=== PATIENT | male | born 1945 | race African-American/Black ===

== ENCOUNTER 2018-05-19 09:49 | Inpatient (IN) | payer MEDICARE, MEDICAID ==
[~2018-05-19] VITALS: Ht 182.9 cm; Wt 79.8 kg
[2018-05-19] MEDS ORDERED: SODIUM CHLORIDE 0.9% 1000ML BAG (SEPSIS BOLUS) IV ONE (10:15)
[2018-05-19 10:45] LABS: HEMATOCRIT. 50.4 % (42.0-52.0); HEMOGLOBIN. 16.9 g/dL (14.0-18.0); MEAN CORPUSCULAR HEMOGLOBIN 35.4 pg (28.0-32.0); MEAN CORPUSCULAR VOLUME 105.6 fL (80.0-94.0); PLATELET 77 x1000/uL (130-400); RED BLOOD CELL COUNT 4.77 mill/uL (4.7-6.1); RED CELL DISTRIBUTION WIDTH 16.7 % (11.6-14.6)
[2018-05-19 10:50] LABS: INR 1.6; PROTHROMBIN TIME 15.8 sec (9.1-11.1)
[2018-05-19 10:51] LABS: CHLORIDE 95 mEq/L (98-107)
[2018-05-19] MEDS ORDERED: VANCOMYCIN 1 G PREMIX 200 ML IV STA (11:16)
[2018-05-19] MEDS ORDERED: CEFEPIME 1,000 MG in DEXTROSE 5% WATER 50 ML IV STA (11:16)
[2018-05-19 11:29] LABS: PLATELET ESTIMATE DECREASED
[2018-05-19] MEDS: METOPROLOL TARTRATE 5MG/5ML VIAL IV SCH ×2 (11:33→14:43)
[2018-05-19] MEDS ORDERED: ASPIRIN 81MG TABLET PO ONE (11:45)
[2018-05-19 12:22] LABS: CREATINE KINASE 2353 IU/L (39-308)
[2018-05-19] MEDS ORDERED: PIPERACILLIN/TAZ 3.375G PREMIX 50 ML IV SCH (12:30)
[2018-05-19] MEDS: DEXT 5%/0.9% NACL 1,000 ML IV SCH (12:30)
[2018-05-19 14:19] LABS: BG BASE EXCESS -11.4 mmol/L (-2.0-2.0); BG CARBOXYHEMOGLOBIN 2.2 % (0.5-1.5); BG HCO3 ACT 12.1 mmol/L (22.0-26.0); BG METHEMOGLOBIN 0.2 % (0.0-1.5); BG OXYHEMOGLOBIN 96.6 % (94.0-97.0); BG PCO2 23.1 mmHg (35.0-45.0); BG PH 7.336 (7.350-7.450); BG PO2 149.7 mmHg (75.0-100.0); BG SAMPLE SITE LEFT RADIAL; BG TOTAL HEMOGLOBIN 16.2 g/dL (12.0-18.0); BG VENT MODE NASAL CANNULA
[2018-05-19 14:53] LABS: CLARITY URINE CLEAR (CLEAR); COLOR URINE YELLOW (YELLOW); KETONES URINE NEGATIVE (NEGATIVE); LEUKOCYTE ESTERASE URINE 2+ (NEGATIVE); NITRITE URINE NEGATIVE (NEGATIVE); OCCULT BLOOD URINE 2+ (NEGATIVE); PROTEIN URINE 1+ (NEGATIVE); SPECIFIC GRAVITY URINE 1.015 (1.005-1.030)
[2018-05-19 15:20] LABS: *AMPHETAMINES SCREEN URINE NEGATIVE (NEGATIVE); *BARBITURATES SCREEN URINE NEGATIVE (NEGATIVE); *BENZODIAZEPINES SCREEN URINE NEGATIVE (NEGATIVE); *COCAINE SCREEN URINE NEGATIVE (NEGATIVE); CANNABINOID URINE SCREEN NEGATIVE (NEGATIVE); METHADONE URINE SCREEN NEGATIVE (NEGATIVE); OPIATES URINE SCREEN NEGATIVE (NEGATIVE); PHENCYCLIDINE URINE SCREEN NEGATIVE (NEGATIVE)
[2018-05-19] MEDS ORDERED: LIDOCAINE HCL 1% 20ML VIAL (Pyxis) INJ INFIL ONE (15:30)
[2018-05-19] MEDS ORDERED: ONDANSETRON HCL 4MG/2ML INJ IV ONE (16:30)
[2018-05-19] MEDS ORDERED: MORPHINE SULFATE 4 MG/ML CPJ (NOT FOR IM USE) IV ONE (16:30)
[2018-05-19] MEDS ORDERED: VERAPAMIL HCL 2.5 MG/1 ML 2ML VIAL IV NR (19:09)
[2018-05-19] MEDS ORDERED: IPRATROPIUM/ALBUTEROL 0.5-3(2.5)MG/3ML NEB HHN PRN (19:10)
[2018-05-19] MEDS: DILTIAZEM HCL 30MG TABLET PO SCH (19:54)
[2018-05-19 20:00] VITALS: BP 108/95
[2018-05-19 21:00] VITALS: BP 108/95
[2018-05-19] MEDS ORDERED: LEVOFLOXACIN 250MG PREMIX 50 ML IV SCH (21:00)
[2018-05-19] MEDS: AMIODARONE HCL 200 MG TABLET PO SCH (21:23)
[2018-05-19 22:00] VITALS: BP 87/61
[2018-05-19] MEDS ORDERED: VANCOMYCIN 500 MG PREMIX 100 ML IV SCH (22:00)
[2018-05-20] VITALS (12 sets, daily range): BP systolic 86–118; BP diastolic 55–76
[2018-05-20] MEDS: DEXT 5%/0.9% NACL 1,000 ML IV SCH ×2 (01:50→18:16)
[2018-05-20] MEDS: DILTIAZEM HCL 30MG TABLET PO SCH ×4 (02:00→17:17)
[2018-05-20] MEDS ORDERED: VERAPAMIL HCL 2.5 MG/1 ML 2ML VIAL IV SCH (06:30)
[2018-05-20] MEDS: IPRATROPIUM BROMIDE (0.02%) 0.5MG/2.5ML NEB HHN SCH ×3 (07:25→20:47)
[2018-05-20] MEDS ORDERED: AMIODARONE HCL 200 MG TABLET PO SCH (08:00)
[2018-05-20] MEDS: AMIODARONE HCL 200 MG TABLET PO SCH (08:56)
[2018-05-20 21:18] LABS: CHLORIDE 103 mEq/L (98-107)
[2018-05-20 21:27] LABS: T4 FREE 1.02 ng/dL (0.76-1.46)
[2018-05-20 21:40] LABS: CREATINE KINASE 2402 IU/L (39-308)
[2018-05-20] MEDS ORDERED: CALCIUM CHLORIDE 1GM/10ML SYR IV NR (22:00)
[2018-05-20] MEDS ORDERED: SODIUM POLYSTYRENE SULFONATE 15 G/60 ML BOT PO NR ×2 (22:00→23:00)
[2018-05-20] MEDS ORDERED: SODIUM BICARBONATE 8.4% 1 MEQ/ML 50ML SYR IV NR (22:00)
[2018-05-20 22:13] LABS: PHOSPHORUS 2.8 mg/dL (2.5-4.9)
[2018-05-20] MEDS: DEXTROSE 50% WATER 50ML SYRINGE IV PRN (22:20)
[2018-05-20 22:24] LABS: BG CARBOXYHEMOGLOBIN 1.4 % (0.5-1.5); BG DEOXYHEMOGLOBIN 2.6 % (0.0-5.0); BG FRACTION INSPIRED OXYGEN 28; BG HCO3 ACT 11.1 mmol/L (22.0-26.0); BG METHEMOGLOBIN 0.3 % (0.0-1.5); BG OXYGEN SATURATION 97.4 % (92.0-98.5); BG OXYHEMOGLOBIN 95.7 % (94.0-97.0); BG PCO2 22.9 mmHg (35.0-45.0); BG PH 7.304 (7.350-7.450); BG PO2 101.5 mmHg (75.0-100.0); BG SAMPLE SITE RIGHT RADIAL; BG TOTAL HEMOGLOBIN 15.5 g/dL (12.0-18.0); BG VENT MODE NASAL CANNULA
[2018-05-20] MEDS: SODIUM BICARBONATE 150 MEQ in DEXT 5%/0.9% NACL 1,000 ML IV SCH (23:23)
[2018-05-20] MEDS ORDERED: LEVOFLOXACIN 250MG PREMIX 50 ML IV SCH (23:30)
[2018-05-21] VITALS (15 sets, daily range): BP systolic 97–127; BP diastolic 61–78
[2018-05-21] MEDS: DILTIAZEM HCL 30MG TABLET PO SCH ×4 (00:12→15:16)
[2018-05-21] MEDS: IPRATROPIUM BROMIDE (0.02%) 0.5MG/2.5ML NEB HHN SCH ×4 (01:53→20:54)
[2018-05-21 02:36] LABS: HEMATOCRIT. 48.7 % (42.0-52.0); MEAN CORPUSCULAR HEMOGLOBIN 35.5 pg (28.0-32.0); MEAN CORPUSCULAR VOLUME 108.1 fL (80.0-94.0); MEAN PLATELET VOLUME 9.5 fl (7.4-10.4); RED BLOOD CELL COUNT 4.51 mill/uL (4.7-6.1); RED CELL DISTRIBUTION WIDTH 17.7 % (11.6-14.6)
[2018-05-21 03:11] LABS: PLATELET 39 x1000/uL (130-400)
[2018-05-21 03:32] LABS: NUCLEATED RED BLOOD CELLS 6 /100 WBC; PLATELET ESTIMATE DECREAS
[2018-05-21] MEDS ORDERED: CALCIUM CHLORIDE 1GM/10ML SYR IV SCH (04:00)
[2018-05-21] MEDS: CALCIUM CHLORIDE 1000 MG in DEXTROSE 5% WATER 100 ML IV SCH (04:47)
[2018-05-21] MEDS: SODIUM POLYSTYRENE SULFONATE 15 G/60 ML BOT PO SCH ×3 (04:48→13:00)
[2018-05-21] MEDS: VERAPAMIL HCL 2.5 MG/1 ML 2ML VIAL IV PRN ×2 (05:53→17:50)
[2018-05-21] MEDS: BLOOD SUGAR DIAGNOSTIC STRIP TEST SCH ×4 (06:00→18:50)
[2018-05-21 06:29] LABS: HEMATOCRIT. 47.3 % (42.0-52.0); HEMOGLOBIN. 15.3 g/dL (14.0-18.0); INR 2.6; MEAN CORPUSCULAR HEMOGLOBIN 35.6 pg (28.0-32.0); PARTIAL THROMBOPLASTIN TIME 39.5 sec (23.4-31.0); PROTHROMBIN TIME 25.6 sec (9.1-11.1); RED CELL DISTRIBUTION WIDTH 18.1 % (11.6-14.6)
[2018-05-21 06:52] LABS: MEAN PLATELET VOLUME 9.6 fl (7.4-10.4); PLATELET 41 x1000/uL (130-400)
[2018-05-21] MEDS: DEXTROSE 50% WATER 50ML SYRINGE IV PRN (07:17)
[2018-05-21] MEDS ORDERED: LIDOCAINE HCL 1% 20ML VIAL (Pyxis) INJ ONE (08:00)
[2018-05-21 09:38] LABS: HEMATOCRIT 42.3 % (42.0-52.0); HEMOGLOBIN 14.2 g/dL (14.0-18.0); MEAN CORPUSCULAR HEMOGLOBIN 35.4 pg (28.0-32.0); MEAN CORPUSCULAR VOLUME 105.6 fL (80.0-94.0); RED BLOOD CELL COUNT 4.01 mill/uL (4.7-6.1); RED CELL DISTRIBUTION WIDTH 16.8 % (11.6-14.6)
[2018-05-21 09:41] LABS: CHLORIDE 106 mEq/L (98-107)
[2018-05-21 09:59] LABS: PLATELET 49 x1000/uL (130-400)
[2018-05-21] MEDS ORDERED: SODIUM BICARBONATE 150 MEQ in DEXT 5%/0.45% NACL 1000ML 1,000 ML IV SCH (10:00)
[2018-05-21 10:21] LABS: PHOSPHORUS 8.6 mg/dL (2.5-4.9)
[2018-05-21 11:49] LABS: CREATINE KINASE 5010 IU/L (39-308)
[2018-05-21 12:17] LABS: CORTISOL 21.3 ucg/dL
[2018-05-21] MEDS: SODIUM BICARBONATE 150 MEQ in DEXT 5%/0.9% NACL 1,000 ML IV SCH (12:19)
[2018-05-21 12:28] LABS: HEPATITIS B SURFACE ANTIGEN NEGATIVE
[2018-05-21 12:29] LABS: NUCLEATED RED BLOOD CELLS 5 /100 WBC; PLATELET ESTIMATE NORMAL
[2018-05-21 12:58] LABS: HEPATITIS A AB IGM NEGATIVE (NEGATIVE)
[2018-05-21] MEDS ORDERED: VANCOMYCIN 1250MG in DEXTROSE 5% WATER 250ML IV SCH (16:00)
[2018-05-21] MEDS ORDERED: LEVOFLOXACIN 250MG PREMIX 50 ML IV SCH (21:00)
[2018-05-22] VITALS (15 sets, daily range): BP systolic 97–139; BP diastolic 63–88
[2018-05-22] MEDS: DILTIAZEM HCL 30MG TABLET PO SCH ×3 (00:16→12:34)
[2018-05-22] MEDS: SODIUM BICARBONATE 150 MEQ in DEXT 5%/0.9% NACL 1,000 ML IV SCH (00:17)
[2018-05-22] MEDS: BLOOD SUGAR DIAGNOSTIC STRIP TEST SCH ×4 (00:17→17:40)
[2018-05-22] MEDS: CALCIUM CHLORIDE 1000 MG in DEXTROSE 5% WATER 100 ML IV SCH (00:20)
[2018-05-22] MEDS: DEXTROSE 50% WATER 50ML SYRINGE IV PRN (00:30)
[2018-05-22] MEDS: IPRATROPIUM BROMIDE (0.02%) 0.5MG/2.5ML NEB HHN SCH ×4 (00:52→20:25)
[2018-05-22 09:24] LABS: HEMATOCRIT. 43.4 % (42.0-52.0); HEMOGLOBIN. 14.5 g/dL (14.0-18.0); MEAN CORPUSCULAR HEMOGLOBIN 34.8 pg (28.0-32.0); MEAN CORPUSCULAR VOLUME 104.2 fL (80.0-94.0); MEAN PLATELET VOLUME 9.7 fl (7.4-10.4); RED BLOOD CELL COUNT 4.17 mill/uL (4.7-6.1); RED CELL DISTRIBUTION WIDTH 17.1 % (11.6-14.6)
[2018-05-22 09:27] LABS: CHLORIDE 104 mEq/L (98-107)
[2018-05-22 09:30] LABS: PLATELET 37 x1000/uL (130-400)
[2018-05-22 09:33] LABS: PHOSPHORUS 6.3 mg/dL (2.5-4.9)
[2018-05-22] MEDS ORDERED: SODIUM BICARBONATE 150 MEQ in DEXT 5%/0.45% NACL 1000ML 1,000 ML IV SCH (10:00)
[2018-05-22 10:23] LABS: PLATELET ESTIMATE MARKEDLY DECREASED
[2018-05-22 10:24] LABS: CREATINE KINASE 7699 IU/L (39-308)
[2018-05-22] MEDS: VERAPAMIL HCL 2.5 MG/1 ML 2ML VIAL IV PRN ×2 (11:03→17:52)
[2018-05-22] MEDS ORDERED: CEFEPIME 2,000 MG in DEXT 5% WATER 100 ML IV SCH (11:45)
[2018-05-22] MEDS ORDERED: CEFEPIME 1,000 MG in DEXTROSE 5% WATER 50 ML IV SCH ×2 (12:15→13:00)
[2018-05-22] MEDS ORDERED: LIDOCAINE HCL/EPINEPHRINE 1%-EPI 1:100,000 30 ML VIAL INFIL ONE (12:15)
[2018-05-22] MEDS ORDERED: VANCOMYCIN 1 G PREMIX 200 ML IV SCH (13:00)
[2018-05-22] MEDS ORDERED: CEFEPIME 1GM PREMIX 50 ML IV SCH (13:00)
[2018-05-22] MEDS ORDERED: LIDOCAINE HCL/EPINEPHRINE 1%-EPI 1:100,000 20 ML VIAL IJ ONE (13:00)
[2018-05-22] MEDS: LACTULOSE 20G/30ML UDC PO SCH ×2 (14:29→17:41)
[2018-05-22] MEDS: HYDROCODONE/ACETAMINOPHEN 5/325MG TABLET PO PRN (18:42)
[2018-05-22] MEDS: DILTIAZEM HCL 60MG TABLET PO SCH (22:06)
[2018-05-23] VITALS (12 sets, daily range): BP systolic 99–120; BP diastolic 37–75
[2018-05-23] MEDS: IPRATROPIUM BROMIDE (0.02%) 0.5MG/2.5ML NEB HHN SCH ×4 (00:36→20:35)
[2018-05-23] MEDS: DILTIAZEM HCL 60MG TABLET PO SCH (06:21)
[2018-05-23] MEDS: BLOOD SUGAR DIAGNOSTIC STRIP TEST SCH ×5 (06:23→23:11)
[2018-05-23 08:07] LABS: HEMATOCRIT. 43.8 % (42.0-52.0); HEMOGLOBIN. 14.4 g/dL (14.0-18.0); MEAN CORPUSCULAR HEMOGLOBIN 34.5 pg (28.0-32.0); MEAN CORPUSCULAR VOLUME 105.4 fL (80.0-94.0); MEAN PLATELET VOLUME 8.9 fl (7.4-10.4); PLATELET 60 x1000/uL (130-400); RED BLOOD CELL COUNT 4.16 mill/uL (4.7-6.1); RED CELL DISTRIBUTION WIDTH 17.6 % (11.6-14.6)
[2018-05-23] MEDS: LACTULOSE 20G/30ML UDC PO SCH ×4 (08:36→22:31)
[2018-05-23 10:10] LABS: PLATELET ESTIMATE DECREASED
[2018-05-23] MEDS ORDERED: VERAPAMIL HCL 2.5 MG/1 ML 2ML VIAL IV PRN (11:45)
[2018-05-23] MEDS: DILTIAZEM HCL 90MG TABLET PO SCH ×3 (12:10→23:13)
[2018-05-23 13:06] LABS: HIV SCREEN 4G Non Reactive (Non Reactive)
[2018-05-23] MEDS: CEFEPIME 500 MG in DEXTROSE 5% WATER 50 ML IV SCH (16:35)
[2018-05-23] MEDS: RIFAXIMIN 550 MG TABLET PO SCH (20:31)
[2018-05-24] VITALS (12 sets, daily range): BP systolic 91–134; BP diastolic 51–70
[2018-05-24] MEDS: IPRATROPIUM BROMIDE (0.02%) 0.5MG/2.5ML NEB HHN SCH ×4 (01:18→20:37)
[2018-05-24] MEDS: ONDANSETRON HCL 4MG/2ML INJ IV PRN ×2 (02:13→12:04)
[2018-05-24] MEDS: BLOOD SUGAR DIAGNOSTIC STRIP TEST SCH ×4 (05:45→23:46)
[2018-05-24] MEDS: DILTIAZEM HCL 90MG TABLET PO SCH ×5 (05:49→23:50)
[2018-05-24] MEDS ORDERED: VANCOMYCIN 1 G PREMIX 200 ML IV NR (06:00)
[2018-05-24 06:48] LABS: CHLORIDE 101 mEq/L (98-107)
[2018-05-24 06:49] LABS: HEMATOCRIT. 45.4 % (42.0-52.0); INR 1.6; MEAN CORPUSCULAR VOLUME 105.6 fL (80.0-94.0); MEAN PLATELET VOLUME 9.6 fl (7.4-10.4); PROTHROMBIN TIME 16.1 sec (9.1-11.1); RED CELL DISTRIBUTION WIDTH 17.6 % (11.6-14.6)
[2018-05-24 06:55] LABS: PHOSPHORUS 6.3 mg/dL (2.5-4.9)
[2018-05-24 07:11] LABS: CREATINE KINASE 3849 IU/L (39-308)
[2018-05-24 08:07] LABS: BG BASE EXCESS 0.8 mmol/L (-2.0-2.0); BG CARBOXYHEMOGLOBIN 1.7 % (0.5-1.5); BG DEOXYHEMOGLOBIN 5.7 % (0.0-5.0); BG FRACTION INSPIRED OXYGEN 36; BG HCO3 ACT 24.5 mmol/L (22.0-26.0); BG METHEMOGLOBIN 0.4 % (0.0-1.5); BG OXYGEN SATURATION 94.2 % (92.0-98.5); BG OXYHEMOGLOBIN 92.2 % (94.0-97.0); BG PCO2 36.5 mmHg (35.0-45.0); BG PH 7.445 (7.350-7.450); BG PO2 72.5 mmHg (75.0-100.0); BG SAMPLE SITE RIGHT RADIAL; BG TOTAL HEMOGLOBIN 15.3 g/dL (12.0-18.0); BG VENT MODE NASAL CANNULA
[2018-05-24 08:08] LABS: PLATELET 38 x1000/uL (130-400)
[2018-05-24] MEDS: LACTULOSE 20G/30ML UDC PO SCH ×2 (09:50→19:13)
[2018-05-24] MEDS: FOLIC ACID 1MG TABLET PO SCH (09:50)
[2018-05-24] MEDS: MULTIVITAMINS,THER W-MINERALS TABLET PO SCH (09:50)
[2018-05-24] MEDS: THIAMINE HCL 100MG TABLET PO SCH (09:50)
[2018-05-24] MEDS: RIFAXIMIN 550 MG TABLET PO SCH ×2 (09:51→21:00)
[2018-05-24 11:19] LABS: T4 FREE 1.02 ng/dL (0.76-1.46)
[2018-05-24 11:54] LABS: VITAMIN B12 SERUM > 2000.0 pg/mL (211-911)
[2018-05-24 12:34] LABS: PLATELET ESTIMATE MARKEDLY DECREASED
[2018-05-24] MEDS ORDERED: DIGOXIN 250MCG TABLET PO NR (15:00)
[2018-05-24] MEDS: CEFEPIME 500 MG in DEXTROSE 5% WATER 50 ML IV SCH (15:20)
[2018-05-25] VITALS (12 sets, daily range): BP systolic 94–141; BP diastolic 41–85
[2018-05-25] MEDS: DEXTROSE 50% WATER 50ML SYRINGE IV PRN (00:03)
[2018-05-25] MEDS: IPRATROPIUM BROMIDE (0.02%) 0.5MG/2.5ML NEB HHN SCH ×4 (02:45→21:17)
[2018-05-25] MEDS: HYDROCODONE/ACETAMINOPHEN 5/325MG TABLET PO PRN (05:26)
[2018-05-25] MEDS: BLOOD SUGAR DIAGNOSTIC STRIP TEST SCH ×4 (05:27→23:46)
[2018-05-25] MEDS: DILTIAZEM HCL 90MG TABLET PO SCH ×4 (05:27→23:45)
[2018-05-25 07:17] LABS: HEMOGLOBIN. 14.7 g/dL (14.0-18.0); MEAN CORPUSCULAR HEMOGLOBIN 34.2 pg (28.0-32.0); MEAN CORPUSCULAR VOLUME 104.9 fL (80.0-94.0); MEAN PLATELET VOLUME 9.8 fl (7.4-10.4); RED BLOOD CELL COUNT 4.29 mill/uL (4.7-6.1); RED CELL DISTRIBUTION WIDTH 17.4 % (11.6-14.6)
[2018-05-25 07:46] LABS: PHOSPHORUS 5.7 mg/dL (2.5-4.9)
[2018-05-25 08:08] LABS: NUCLEATED RED BLOOD CELLS 1 /100 WBC
[2018-05-25 08:09] LABS: PLATELET ESTIMATE MARKEDLY DECREASED
[2018-05-25 08:10] LABS: PLATELET 35 x1000/uL (130-400)
[2018-05-25] MEDS: THIAMINE HCL 100MG TABLET PO SCH (09:00)
[2018-05-25] MEDS: FOLIC ACID 1MG TABLET PO SCH (09:00)
[2018-05-25] MEDS: RIFAXIMIN 550 MG TABLET PO SCH ×2 (09:00→20:12)
[2018-05-25] MEDS: LACTULOSE 20G/30ML UDC PO SCH ×2 (09:00→16:14)
[2018-05-25] MEDS: MULTIVITAMINS,THER W-MINERALS TABLET PO SCH (09:00)
[2018-05-25] MEDS: CEFEPIME 500 MG in DEXTROSE 5% WATER 50 ML IV SCH (16:13)
[2018-05-26] VITALS (13 sets, daily range): BP systolic 97–127; BP diastolic 60–83
[2018-05-26] MEDS: IPRATROPIUM BROMIDE (0.02%) 0.5MG/2.5ML NEB HHN SCH ×3 (02:49→20:53)
[2018-05-26] MEDS: BLOOD SUGAR DIAGNOSTIC STRIP TEST SCH ×3 (06:00→17:56)
[2018-05-26] MEDS: DILTIAZEM HCL 90MG TABLET PO SCH ×4 (06:00→23:32)
[2018-05-26 07:27] LABS: HEMOGLOBIN. 14.4 g/dL (14.0-18.0); MEAN CORPUSCULAR VOLUME 104.4 fL (80.0-94.0); MEAN PLATELET VOLUME 10.9 fl (7.4-10.4); RED BLOOD CELL COUNT 4.12 mill/uL (4.7-6.1); RED CELL DISTRIBUTION WIDTH 16.8 % (11.6-14.6)
[2018-05-26] MEDS: LACTULOSE 20G/30ML UDC PO SCH ×2 (08:20→18:07)
[2018-05-26] MEDS: RIFAXIMIN 550 MG TABLET PO SCH ×2 (08:21→20:58)
[2018-05-26] MEDS: THIAMINE HCL 100MG TABLET PO SCH (08:21)
[2018-05-26] MEDS: MULTIVITAMINS,THER W-MINERALS TABLET PO SCH (08:21)
[2018-05-26] MEDS: FOLIC ACID 1MG TABLET PO SCH (08:21)
[2018-05-26 09:23] LABS: CHLORIDE 106 mEq/L (98-107)
[2018-05-26 09:30] LABS: PHOSPHORUS 5.9 mg/dL (2.5-4.9)
[2018-05-26 09:48] LABS: CREATINE KINASE 1757 IU/L (39-308)
[2018-05-26 11:09] LABS: NUCLEATED RED BLOOD CELLS 2 /100 WBC; PLATELET ESTIMATE MARKEDLY DECREASED
[2018-05-26 11:10] LABS: PLATELET 32 x1000/uL (130-400)
[2018-05-26] MEDS ORDERED: DIGOXIN 250MCG TABLET PO NR (11:45)
[2018-05-26] MEDS ORDERED: TRAMADOL 50MG TABLET PO PRN (11:45)
[2018-05-26] MEDS ORDERED: VANCOMYCIN 1 G PREMIX 200 ML IV NR (12:30)
[2018-05-26] MEDS: CEFEPIME 500 MG in DEXTROSE 5% WATER 50 ML IV SCH (16:30)
[2018-05-27] VITALS (12 sets, daily range): BP systolic 103–129; BP diastolic 47–73
[2018-05-27] MEDS: IPRATROPIUM BROMIDE (0.02%) 0.5MG/2.5ML NEB HHN SCH ×4 (01:37→19:34)
[2018-05-27] MEDS: DILTIAZEM HCL 90MG TABLET PO SCH ×2 (05:55→12:10)
[2018-05-27] MEDS: BLOOD SUGAR DIAGNOSTIC STRIP TEST SCH ×4 (06:00→18:24)
[2018-05-27 07:13] LABS: HEMATOCRIT. 42.7 % (42.0-52.0); HEMOGLOBIN. 14.1 g/dL (14.0-18.0); MEAN CORPUSCULAR HEMOGLOBIN 34.7 pg (28.0-32.0); MEAN CORPUSCULAR VOLUME 105.2 fL (80.0-94.0); MEAN PLATELET VOLUME 10.7 fl (7.4-10.4); RED BLOOD CELL COUNT 4.06 mill/uL (4.7-6.1); RED CELL DISTRIBUTION WIDTH 16.8 % (11.6-14.6)
[2018-05-27 07:43] LABS: PLATELET ESTIMATE MARKEDLY DECREASED
[2018-05-27 07:44] LABS: PLATELET 40 x1000/uL (130-400)
[2018-05-27] MEDS: LACTULOSE 20G/30ML UDC PO SCH ×2 (08:27→16:55)
[2018-05-27] MEDS: FOLIC ACID 1MG TABLET PO SCH (08:27)
[2018-05-27] MEDS: THIAMINE HCL 100MG TABLET PO SCH (08:27)
[2018-05-27] MEDS: RIFAXIMIN 550 MG TABLET PO SCH ×2 (08:27→22:07)
[2018-05-27] MEDS: MULTIVITAMINS,THER W-MINERALS TABLET PO SCH (08:28)
[2018-05-27] MEDS ORDERED: VANCOMYCIN 1 G PREMIX 200 ML IV SCH (13:00)
[2018-05-27] MEDS ORDERED: DIATR MEGLU/DIATRIZOATE SOLN 30ML PO NR (13:00)
[2018-05-27] MEDS ORDERED: CEFEPIME 1,000 MG in DEXT 5% WATER 100 ML IV SCH (15:00)
[2018-05-27] MEDS: CEFEPIME 1,000 MG in DEXTROSE 5% WATER 50 ML IV SCH (16:26)
[2018-05-28] VITALS (16 sets, daily range): BP systolic 80–122; BP diastolic 34–63
[2018-05-28] MEDS: IPRATROPIUM BROMIDE (0.02%) 0.5MG/2.5ML NEB HHN SCH ×4 (00:16→20:22)
[2018-05-28] MEDS: DILTIAZEM HCL 90MG TABLET PO SCH ×4 (00:19→18:00)
[2018-05-28] MEDS: BLOOD SUGAR DIAGNOSTIC STRIP TEST SCH ×4 (06:41→17:20)
[2018-05-28] MEDS: RIFAXIMIN 550 MG TABLET PO SCH ×2 (09:00→23:02)
[2018-05-28] MEDS: FOLIC ACID 1MG TABLET PO SCH (09:00)
[2018-05-28] MEDS: LACTULOSE 20G/30ML UDC PO SCH ×2 (09:00→17:14)
[2018-05-28] MEDS: THIAMINE HCL 100MG TABLET PO SCH (09:00)
[2018-05-28] MEDS: MULTIVITAMINS,THER W-MINERALS TABLET PO SCH (09:00)
[2018-05-28] MEDS: METRONIDAZOLE 500 MG PREMIX 100 ML IV SCH ×2 (11:02→19:32)
[2018-05-28] MEDS ORDERED: VANCOMYCIN 1 G PREMIX 200 ML IV SCH (14:00)
[2018-05-28 18:34] LABS: HEMATOCRIT. 36.5 % (42.0-52.0); MEAN CORPUSCULAR HEMOGLOBIN 34.3 pg (28.0-32.0); MEAN CORPUSCULAR VOLUME 104.1 fL (80.0-94.0)
[2018-05-28 18:35] LABS: BASOPHILS % 0.1 % (0.0-2.0); EOSINOPHILS % 0.2 % (0.0-5.0); MEAN PLATELET VOLUME 11.6 fl (7.4-10.4); MONOCYTES % 5.2 % (2.0-8.0); NEUTROPHILS % 89.5 % (40.0-76.0); PLATELET 53 x1000/uL (130-400); RED CELL DISTRIBUTION WIDTH 16.3 % (11.6-14.6)
[2018-05-28 18:40] LABS: PHOSPHORUS 2.7 mg/dL (2.5-4.9)
[2018-05-28] MEDS: CEFEPIME 1,000 MG in DEXTROSE 5% WATER 50 ML IV SCH (18:46)
[2018-05-29] VITALS (100 sets, daily range): BP systolic 58–138; BP diastolic 26–97
[2018-05-29] MEDS: DILTIAZEM HCL 90MG TABLET PO SCH
[2018-05-29] MEDS ORDERED: SODIUM CHLORIDE 0.9% 250 ML IV ONE (00:45)
[2018-05-29] MEDS ORDERED: DIGOXIN 500MCG/2ML AMP IV SCH (00:45)
[2018-05-29] MEDS: METRONIDAZOLE 500 MG PREMIX 100 ML IV SCH ×2 (01:34→09:31)
[2018-05-29] MEDS: IPRATROPIUM BROMIDE (0.02%) 0.5MG/2.5ML NEB HHN SCH ×3 (02:28→20:36)
[2018-05-29] MEDS: NOREPINEPHRINE 8 MG in DEXT 5% WATER 242 ML IV PRN ×2 (04:43→16:17)
[2018-05-29] MEDS: DILTIAZEM HCL 30MG TABLET PO SCH ×4 (06:00→20:17)
[2018-05-29] MEDS: BLOOD SUGAR DIAGNOSTIC STRIP TEST SCH ×4 (06:21→18:00)
[2018-05-29] MEDS: DEXTROSE 50% WATER 50ML SYRINGE IV PRN ×3 (06:25→18:15)
[2018-05-29] MEDS: FOLIC ACID 1MG TABLET PO SCH (09:00)
[2018-05-29] MEDS: LACTULOSE 20G/30ML UDC PO SCH ×2 (09:00→17:00)
[2018-05-29] MEDS: RIFAXIMIN 550 MG TABLET PO SCH ×2 (09:00→21:00)
[2018-05-29] MEDS: THIAMINE HCL 100MG TABLET PO SCH (09:00)
[2018-05-29] MEDS: MULTIVITAMINS,THER W-MINERALS TABLET PO SCH (09:00)
[2018-05-29 10:32] LABS: PHOSPHORUS 5.6 mg/dL (2.5-4.9)
[2018-05-29 10:44] LABS: MEAN CORPUSCULAR HEMOGLOBIN 34.3 pg (28.0-32.0); MEAN CORPUSCULAR VOLUME 105.7 fL (80.0-94.0); PLATELET 57 x1000/uL (130-400); RED BLOOD CELL COUNT 2.05 mill/uL (4.7-6.1); RED CELL DISTRIBUTION WIDTH 16.2 % (11.6-14.6)
[2018-05-29 10:56] LABS: HEMATOCRIT. 21.7 % (42.0-52.0)
[2018-05-29] MEDS: PIPERACILLIN/TAZ 2.25G PREMIX 50 ML IV SCH ×2 (12:07→22:00)
[2018-05-29] MEDS: PANTOPRAZOLE SODIUM 40 MG/VIAL IV SCH (12:10)
[2018-05-29 12:44] LABS: NUCLEATED RED BLOOD CELLS 1 /100 WBC; PLATELET ESTIMATE DECREASED
[2018-05-29 15:55] LABS: BG BASE EXCESS -19.1 mmol/L (-2.0-2.0); BG CARBOXYHEMOGLOBIN 0.4 % (0.5-1.5); BG DEOXYHEMOGLOBIN 0.5 % (0.0-5.0); BG FRACTION INSPIRED OXYGEN 100; BG HCO3 ACT 7.2 mmol/L (22.0-26.0); BG METHEMOGLOBIN 0.3 % (0.0-1.5); BG OXYGEN SATURATION 99.5 % (92.0-98.5); BG OXYHEMOGLOBIN 98.8 % (94.0-97.0); BG PCO2 19.1 mmHg (35.0-45.0); BG PH 7.196 (7.350-7.450); BG PO2 314.4 mmHg (75.0-100.0); BG SAMPLE SITE RIGHT RADIAL; BG TOTAL HEMOGLOBIN 8.2 g/dL (12.0-18.0); BG VENT MODE MASK - NRB
[2018-05-29] MEDS ORDERED: SODIUM BICARBONATE 8.4% 1 MEQ/ML 50ML SYR IV NR (16:15)
[2018-05-29] MEDS: OCTREOTIDE 1,000 MCG in SODIUM CHLORIDE 0.9% 98 ML IV SCH (16:48)
[2018-05-29 18:41] LABS: HEMATOCRIT 29.3 % (42.0-52.0); HEMOGLOBIN 9.6 g/dL (14.0-18.0)
[2018-05-29 19:14] LABS: INR 2.1; PARTIAL THROMBOPLASTIN TIME 37.4 sec (23.4-31.0); PROTHROMBIN TIME 21.1 sec (9.1-11.1)
[2018-05-29] MEDS: PHENYLEPHRINE 40 MG in DEXT 5% WATER 246 ML IV PRN (20:01)
[2018-05-30] VITALS (62 sets, daily range): BP systolic 69–148; BP diastolic 45–115
[2018-05-30] MEDS: PHENYLEPHRINE 40 MG in DEXT 5% WATER 246 ML IV PRN ×4 (00:10→22:42)
[2018-05-30] MEDS: BLOOD SUGAR DIAGNOSTIC STRIP TEST SCH ×4 (01:00→18:40)
[2018-05-30] MEDS: METRONIDAZOLE 500 MG PREMIX 100 ML IV SCH ×3 (01:00→17:00)
[2018-05-30] MEDS: DEXTROSE 50% WATER 50ML SYRINGE IV PRN (01:33)
[2018-05-30] MEDS: PANTOPRAZOLE SODIUM 40 MG/VIAL IV SCH ×3 (01:46→22:08)
[2018-05-30] MEDS: IPRATROPIUM BROMIDE (0.02%) 0.5MG/2.5ML NEB HHN SCH ×4 (02:17→20:15)
[2018-05-30] MEDS: NOREPINEPHRINE 8 MG in DEXT 5% WATER 242 ML IV PRN (04:57)
[2018-05-30] MEDS: PIPERACILLIN/TAZ 2.25G PREMIX 50 ML IV SCH ×3 (05:48→22:08)
[2018-05-30] MEDS: OCTREOTIDE 1,000 MCG in SODIUM CHLORIDE 0.9% 98 ML IV SCH (05:48)
[2018-05-30] MEDS: DILTIAZEM HCL 30MG TABLET PO SCH ×3 (06:00→18:00)
[2018-05-30 06:45] LABS: CHLORIDE 103 mEq/L (98-107)
[2018-05-30 06:49] LABS: HEMATOCRIT. 32.5 % (42.0-52.0); MEAN CORPUSCULAR HEMOGLOBIN 33.1 pg (28.0-32.0); MEAN CORPUSCULAR VOLUME 97.2 fL (80.0-94.0); MEAN PLATELET VOLUME 11.2 fl (7.4-10.4); PLATELET 85 x1000/uL (130-400); RED BLOOD CELL COUNT 3.35 mill/uL (4.7-6.1); RED CELL DISTRIBUTION WIDTH 20.5 % (11.6-14.6)
[2018-05-30 07:10] LABS: HEMOGLOBIN. 11.1 g/dL (14.0-18.0)
[2018-05-30 08:01] LABS: BG BASE EXCESS -2.6 mmol/L (-2.0-2.0); BG DEOXYHEMOGLOBIN 0.8 % (0.0-5.0); BG FRACTION INSPIRED OXYGEN 99.8; BG HCO3 ACT 19.3 mmol/L (22.0-26.0); BG METHEMOGLOBIN 0.4 % (0.0-1.5); BG OXYGEN SATURATION 99.2 % (92.0-98.5); BG OXYHEMOGLOBIN 98.8 % (94.0-97.0); BG PCO2 24.5 mmHg (35.0-45.0); BG PH 7.514 (7.350-7.450); BG PO2 379.4 mmHg (75.0-100.0); BG SAMPLE SITE LEFT RADIAL; BG VENT MODE MASK - NRB
[2018-05-30] MEDS: RIFAXIMIN 550 MG TABLET PO SCH ×2 (09:00→22:08)
[2018-05-30] MEDS: FOLIC ACID 1MG TABLET PO SCH (09:00)
[2018-05-30] MEDS: LACTULOSE 20G/30ML UDC PO SCH ×2 (09:00→17:00)
[2018-05-30] MEDS: THIAMINE HCL 100MG TABLET PO SCH (09:00)
[2018-05-30] MEDS: MULTIVITAMINS,THER W-MINERALS TABLET PO SCH (09:00)
[2018-05-30] MEDS ORDERED: PHYTONADIONE 10MG/ML AMP IM NR (10:15)
[2018-05-30 10:22] LABS: PLATELET ESTIMATE DECREASED
[2018-05-30] MEDS ORDERED: ETOMIDATE 2MG/ML 10ML VIAL IV ONE (10:35)
[2018-05-30] MEDS ORDERED: SODIUM CHLORIDE 0.9% 10ML VIAL ONE (10:35)
[2018-05-30] MEDS ORDERED: VECURONIUM BROMIDE 10 MG/VIAL IV ONE (10:35)
[2018-05-30] MEDS ORDERED: PROPOFOL 200MG/20ML VIAL IV ONE (11:08)
[2018-05-30] MEDS ORDERED: ROCURONIUM BROMIDE 10MG/ML VIAL 5ML IV ONE (11:08)
[2018-05-30 12:23] LABS: BG BASE EXCESS -8.5 mmol/L (-2.0-2.0); BG CARBOXYHEMOGLOBIN 0.3 % (0.5-1.5); BG DEOXYHEMOGLOBIN 2.2 % (0.0-5.0); BG FRACTION INSPIRED OXYGEN 100; BG HCO3 ACT 17.4 mmol/L (22.0-26.0); BG METHEMOGLOBIN 1.1 % (0.0-1.5); BG OXYGEN SATURATION 97.8 % (92.0-98.5); BG OXYHEMOGLOBIN 96.4 % (94.0-97.0); BG PCO2 37.1 mmHg (35.0-45.0); BG PH 7.289 (7.350-7.450); BG PO2 151.3 mmHg (75.0-100.0); BG SAMPLE SITE RIGHT RADIAL; BG TIDAL VOLUME(mL) 500 mL; BG TOTAL HEMOGLOBIN 9.7 g/dL (12.0-18.0); BG VENT MODE VENT - A/C; BG VENT RATE 14 set
[2018-05-30] MEDS ORDERED: PROPOFOL 10MG/ML 100ML 100 ML IV PRN (14:00)
[2018-05-30] MEDS ORDERED: DIGOXIN 500MCG/2ML AMP IV SCH (14:00)
[2018-05-30] MEDS ORDERED: EPINEPHRINE 0.1MG/ML (1:10,000) 10ML SYR ONE (14:30)
[2018-05-30] MEDS ORDERED: SODIUM BICARBONATE 7.5% 0.9 MEQ/ML 50ML SYR IV ONE (14:30)
[2018-05-30 15:12] LABS: BG BASE EXCESS -9.7 mmol/L (-2.0-2.0); BG DEOXYHEMOGLOBIN 0.7 % (0.0-5.0); BG FRACTION INSPIRED OXYGEN 100; BG HCO3 ACT 18.8 mmol/L (22.0-26.0); BG METHEMOGLOBIN 0.5 % (0.0-1.5); BG OXYGEN SATURATION 99.3 % (92.0-98.5); BG OXYHEMOGLOBIN 98.8 % (94.0-97.0); BG PCO2 55.5 mmHg (35.0-45.0); BG PH 7.148 (7.350-7.450); BG PO2 388.1 mmHg (75.0-100.0); BG SAMPLE SITE LEFT BRACHIAL; BG TIDAL VOLUME(mL) 500 mL; BG TOTAL HEMOGLOBIN 8.8 g/dL (12.0-18.0); BG VENT MODE VENT - A/C; BG VENT RATE 14 set
[2018-05-30] MEDS ORDERED: PHENYLEPHRINE HCL 10 MG/ML 1ML (IV VIAL) IV ONE (15:12)
[2018-05-30] MEDS ORDERED: SODIUM BICARBONATE 8.4% 1 MEQ/ML 50ML SYR IV ONE (15:30)
[2018-05-30] MEDS ORDERED: SODIUM BICARBONATE 8.4% 1 MEQ/ML 50ML SYR IV NR ×2 (15:30→16:15)
[2018-05-30 15:36] LABS: HEMATOCRIT 23.7 % (42.0-52.0); MEAN CORPUSCULAR HEMOGLOBIN 32.9 pg (28.0-32.0); MEAN CORPUSCULAR VOLUME 97.5 fL (80.0-94.0); PLATELET 61 x1000/uL (130-400); RED BLOOD CELL COUNT 2.43 mill/uL (4.7-6.1); RED CELL DISTRIBUTION WIDTH 20.7 % (11.6-14.6)
[2018-05-30] MEDS ORDERED: FUROSEMIDE 40MG/4ML VIAL IVP NR (16:15)
[2018-05-30] MEDS ORDERED: DEXTROSE 50% WATER 50ML SYRINGE IV NR (16:15)
[2018-05-30] MEDS ORDERED: INSULIN REGULAR (HUMULIN R) UD 100 UNITS/ML SYR IV NR (17:00)
[2018-05-30 18:31] LABS: BG BASE EXCESS -5.1 mmol/L (-2.0-2.0); BG CARBOXYHEMOGLOBIN 0.3 % (0.5-1.5); BG FRACTION INSPIRED OXYGEN 100; BG HCO3 ACT 20.8 mmol/L (22.0-26.0); BG METHEMOGLOBIN 0.5 % (0.0-1.5); BG OXYHEMOGLOBIN 98.2 % (94.0-97.0); BG PCO2 42.1 mmHg (35.0-45.0); BG PH 7.311 (7.350-7.450); BG PO2 257.7 mmHg (75.0-100.0); BG SAMPLE SITE RIGHT RADIAL; BG TIDAL VOLUME(mL) 500 mL; BG TOTAL HEMOGLOBIN 8.4 g/dL (12.0-18.0); BG VENT MODE VENT - A/C; BG VENT RATE 14 set
[2018-05-31] VITALS (84 sets, daily range): BP systolic 72–141; BP diastolic 40–81
[2018-05-31] MEDS: BLOOD SUGAR DIAGNOSTIC STRIP TEST SCH ×4 (00:25→18:15)
[2018-05-31] MEDS: METRONIDAZOLE 500 MG PREMIX 100 ML IV SCH ×3 (00:28→16:54)
[2018-05-31 00:42] LABS: HEMATOCRIT 28.7 % (42.0-52.0); HEMOGLOBIN 10.1 g/dL (14.0-18.0)
[2018-05-31] MEDS: DILTIAZEM HCL 30MG TABLET PO SCH ×4 (00:44→16:47)
[2018-05-31] MEDS: NOREPINEPHRINE 8 MG in DEXT 5% WATER 242 ML IV PRN (00:45)
[2018-05-31] MEDS: OCTREOTIDE 1,000 MCG in SODIUM CHLORIDE 0.9% 98 ML IV SCH (00:46)
[2018-05-31] MEDS: IPRATROPIUM BROMIDE (0.02%) 0.5MG/2.5ML NEB HHN SCH ×4 (01:34→20:37)
[2018-05-31] MEDS: PHENYLEPHRINE 40 MG in DEXT 5% WATER 246 ML IV PRN (03:04)
[2018-05-31 05:50] LABS: HEMATOCRIT. 30.5 % (42.0-52.0); HEMOGLOBIN. 10.5 g/dL (14.0-18.0); MEAN CORPUSCULAR HEMOGLOBIN 32.4 pg (28.0-32.0); MEAN CORPUSCULAR VOLUME 94.5 fL (80.0-94.0); MEAN PLATELET VOLUME 10.5 fl (7.4-10.4); RED BLOOD CELL COUNT 3.23 mill/uL (4.7-6.1); RED CELL DISTRIBUTION WIDTH 18.5 % (11.6-14.6)
[2018-05-31 05:58] LABS: INR 2.2; PARTIAL THROMBOPLASTIN TIME 38.1 sec (23.4-31.0); PROTHROMBIN TIME 22.1 sec (9.1-11.1)
[2018-05-31 06:03] LABS: CHLORIDE 98 mEq/L (98-107)
[2018-05-31 06:30] LABS: PHOSPHORUS 8.5 mg/dL (2.5-4.9)
[2018-05-31] MEDS: PIPERACILLIN/TAZ 2.25G PREMIX 50 ML IV SCH ×3 (06:33→21:14)
[2018-05-31 06:48] LABS: PLATELET 43 x1000/uL (130-400)
[2018-05-31 07:30] LABS: NUCLEATED RED BLOOD CELLS 8 /100 WBC
[2018-05-31 07:31] LABS: PLATELET ESTIMATE MARKEDLY DECREASED
[2018-05-31 07:32] LABS: BG BASE EXCESS -0.2 mmol/L (-2.0-2.0); BG CARBOXYHEMOGLOBIN 0.7 % (0.5-1.5); BG DEOXYHEMOGLOBIN 0.6 % (0.0-5.0); BG HCO3 ACT 24.2 mmol/L (22.0-26.0); BG METHEMOGLOBIN 0.3 % (0.0-1.5); BG OXYGEN SATURATION 99.4 % (92.0-98.5); BG OXYHEMOGLOBIN 98.4 % (94.0-97.0); BG PCO2 38.5 mmHg (35.0-45.0); BG PH 7.416 (7.350-7.450); BG PO2 284.6 mmHg (75.0-100.0); BG SAMPLE SITE RIGHT RADIAL; BG TIDAL VOLUME(mL) 500 mL; BG TOTAL HEMOGLOBIN 10.6 g/dL (12.0-18.0); BG VENT MODE VENT - A/C; BG VENT RATE 14 set
[2018-05-31] MEDS: PHENYLEPHRINE 80 MG in DEXT 5% WATER 492 ML IV PRN ×2 (07:42→16:48)
[2018-05-31] MEDS ORDERED: PHYTONADIONE 10MG/ML AMP SUBCUT NR (07:45)
[2018-05-31] MEDS: THIAMINE HCL 100MG TABLET PO SCH ×2 (08:23→08:30)
[2018-05-31] MEDS: FOLIC ACID 1MG TABLET PO SCH ×2 (08:23→08:29)
[2018-05-31] MEDS: PANTOPRAZOLE SODIUM 40 MG/VIAL IV SCH ×2 (08:23→21:14)
[2018-05-31] MEDS: RIFAXIMIN 550 MG TABLET PO SCH ×3 (08:23→21:00)
[2018-05-31] MEDS: LACTULOSE 20G/30ML UDC PO SCH ×3 (08:23→16:47)
[2018-05-31] MEDS: MULTIVITAMINS,THER W-MINERALS TABLET PO SCH ×2 (08:23→08:29)
[2018-05-31] MEDS ORDERED: PROPOFOL 10MG/ML 100ML 100 ML IV PRN (09:00)
[2018-05-31 10:23] LABS: HEMATOCRIT. 30.3 % (42.0-52.0); HEMOGLOBIN. 10.7 g/dL (14.0-18.0); MEAN CORPUSCULAR HEMOGLOBIN 33.4 pg (28.0-32.0); MEAN PLATELET VOLUME 12.5 fl (7.4-10.4); RED BLOOD CELL COUNT 3.19 mill/uL (4.7-6.1); RED CELL DISTRIBUTION WIDTH 18.5 % (11.6-14.6)
[2018-05-31 10:31] LABS: PLATELET 43 x1000/uL (130-400)
[2018-05-31 11:13] LABS: NUCLEATED RED BLOOD CELLS 9 /100 WBC; PLATELET ESTIMATE MARKEDLY DECREASED
[2018-05-31] MEDS ORDERED: VERAPAMIL HCL 2.5 MG/1 ML 2ML VIAL IV PRN (15:00)
[2018-05-31 15:36] LABS: HEMATOCRIT. 26.5 % (42.0-52.0); HEMOGLOBIN. 9.3 g/dL (14.0-18.0); MEAN CORPUSCULAR HEMOGLOBIN 33.2 pg (28.0-32.0); MEAN CORPUSCULAR VOLUME 94.4 fL (80.0-94.0); MEAN PLATELET VOLUME 8.1 fl (7.4-10.4); PLATELET 106 x1000/uL (130-400); RED BLOOD CELL COUNT 2.81 mill/uL (4.7-6.1); RED CELL DISTRIBUTION WIDTH 18.1 % (11.6-14.6)
[2018-05-31 16:16] LABS: NUCLEATED RED BLOOD CELLS 12 /100 WBC; PLATELET ESTIMATE DECREASED
[2018-05-31 17:14] LABS: CHLORIDE 95 mEq/L (98-107)
[2018-05-31 17:23] LABS: BG BASE EXCESS 4.4 mmol/L (-2.0-2.0); BG CARBOXYHEMOGLOBIN 0.6 % (0.5-1.5); BG DEOXYHEMOGLOBIN 2.6 % (0.0-5.0); BG FRACTION INSPIRED OXYGEN 50; BG HCO3 ACT 28.5 mmol/L (22.0-26.0); BG METHEMOGLOBIN 0.3 % (0.0-1.5); BG OXYGEN SATURATION 97.4 % (92.0-98.5); BG OXYHEMOGLOBIN 96.5 % (94.0-97.0); BG PCO2 40.2 mmHg (35.0-45.0); BG PH 7.468 (7.350-7.450); BG PO2 100.2 mmHg (75.0-100.0); BG SAMPLE SITE RIGHT RADIAL; BG TIDAL VOLUME(mL) 500 mL; BG TOTAL HEMOGLOBIN 10.1 g/dL (12.0-18.0); BG VENT MODE VENT - A/C; BG VENT RATE 14 set
[2018-05-31] MEDS: DEXT 5%/0.9% NACL 1,000 ML IV SCH (18:16)
[2018-06-01] VITALS (79 sets, daily range): BP systolic 86–139; BP diastolic 47–83
[2018-06-01] MEDS: METRONIDAZOLE 500 MG PREMIX 100 ML IV SCH ×3 (00:40→16:21)
[2018-06-01] MEDS: IPRATROPIUM BROMIDE (0.02%) 0.5MG/2.5ML NEB HHN SCH ×4 (02:32→19:52)
[2018-06-01 05:46] LABS: HEMATOCRIT. 26.7 % (42.0-52.0); HEMOGLOBIN. 9.3 g/dL (14.0-18.0); MEAN CORPUSCULAR HEMOGLOBIN 33.4 pg (28.0-32.0); MEAN CORPUSCULAR VOLUME 95.7 fL (80.0-94.0); PLATELET 54 x1000/uL (130-400); RED BLOOD CELL COUNT 2.79 mill/uL (4.7-6.1); RED CELL DISTRIBUTION WIDTH 18.1 % (11.6-14.6)
[2018-06-01 05:47] LABS: INR 1.7
[2018-06-01 05:53] LABS: CHLORIDE 95 mEq/L (98-107)
[2018-06-01 05:59] LABS: PHOSPHORUS 6.6 mg/dL (2.5-4.9)
[2018-06-01] MEDS: DILTIAZEM HCL 30MG TABLET PO SCH ×4 (06:00→16:49)
[2018-06-01] MEDS: PIPERACILLIN/TAZ 2.25G PREMIX 50 ML IV SCH ×3 (06:36→21:59)
[2018-06-01] MEDS: BLOOD SUGAR DIAGNOSTIC STRIP TEST SCH ×4 (06:37→16:54)
[2018-06-01] MEDS: PHENYLEPHRINE 80 MG in DEXT 5% WATER 492 ML IV PRN ×2 (06:41→16:22)
[2018-06-01] MEDS ORDERED: ALBUMIN HUMAN 25GM/100ML (25%) IV SCH (06:45)
[2018-06-01] MEDS: MULTIVITAMINS,THER W-MINERALS TABLET PO SCH (08:19)
[2018-06-01] MEDS: FOLIC ACID 1MG TABLET PO SCH (08:19)
[2018-06-01] MEDS: THIAMINE HCL 100MG TABLET PO SCH (08:19)
[2018-06-01] MEDS: RIFAXIMIN 550 MG TABLET PO SCH ×2 (08:19→21:58)
[2018-06-01] MEDS: LACTULOSE 20G/30ML UDC PO SCH ×2 (08:19→16:12)
[2018-06-01 08:28] LABS: BG BASE EXCESS 3.9 mmol/L (-2.0-2.0); BG CARBOXYHEMOGLOBIN 0.3 % (0.5-1.5); BG DEOXYHEMOGLOBIN 1.9 % (0.0-5.0); BG FRACTION INSPIRED OXYGEN 50; BG HCO3 ACT 28.6 mmol/L (22.0-26.0); BG METHEMOGLOBIN 0.1 % (0.0-1.5); BG OXYGEN SATURATION 98.1 % (92.0-98.5); BG OXYHEMOGLOBIN 97.7 % (94.0-97.0); BG PCO2 43.5 mmHg (35.0-45.0); BG PH 7.435 (7.350-7.450); BG PO2 122.9 mmHg (75.0-100.0); BG SAMPLE SITE LEFT RADIAL; BG TIDAL VOLUME(mL) 500 mL; BG TOTAL HEMOGLOBIN 9.9 g/dL (12.0-18.0); BG VENT MODE VENT - A/C; BG VENT RATE 14 set
[2018-06-01] MEDS: PANTOPRAZOLE SODIUM 40 MG/VIAL IV SCH ×2 (08:28→21:58)
[2018-06-01 09:38] LABS: NUCLEATED RED BLOOD CELLS 19 /100 WBC; PLATELET ESTIMATE DECREASED
[2018-06-01] MEDS ORDERED: DIGOXIN 500MCG/2ML AMP IV NR (10:45)
[2018-06-01] MEDS ORDERED: LORAZEPAM 2MG/ML CPJ IV PRN (13:15)
[2018-06-01] MEDS ORDERED: MORPHINE SULFATE 4 MG/ML CPJ (NOT FOR IM USE) IV PRN (16:45)
[2018-06-01] MEDS ORDERED: VANCOMYCIN 500 MG PREMIX 100 ML IV SCH (17:00)
[2018-06-01] MEDS: DEXT 5%/0.9% NACL 1,000 ML IV SCH (17:17)
[2018-06-02] VITALS (104 sets, daily range): BP systolic 76–135; BP diastolic 42–78
[2018-06-02] MEDS: DILTIAZEM HCL 30MG TABLET PO SCH ×4 (00:08→17:45)
[2018-06-02] MEDS: BLOOD SUGAR DIAGNOSTIC STRIP TEST SCH ×4 (00:08→17:45)
[2018-06-02] MEDS: METRONIDAZOLE 500 MG PREMIX 100 ML IV SCH ×3 (01:31→19:47)
[2018-06-02] MEDS: IPRATROPIUM BROMIDE (0.02%) 0.5MG/2.5ML NEB HHN SCH ×4 (01:54→20:31)
[2018-06-02 05:38] LABS: CHLORIDE 94 mEq/L (98-107)
[2018-06-02 05:39] LABS: HEMATOCRIT. 26.8 % (42.0-52.0); HEMOGLOBIN. 9.2 g/dL (14.0-18.0); MEAN CORPUSCULAR HEMOGLOBIN 33.1 pg (28.0-32.0); MEAN CORPUSCULAR VOLUME 96.3 fL (80.0-94.0); MEAN PLATELET VOLUME 10.3 fl (7.4-10.4); RED BLOOD CELL COUNT 2.78 mill/uL (4.7-6.1); RED CELL DISTRIBUTION WIDTH 17.3 % (11.6-14.6)
[2018-06-02 05:44] LABS: PHOSPHORUS 6.2 mg/dL (2.5-4.9)
[2018-06-02] MEDS: DEXTROSE 50% WATER 50ML SYRINGE IV PRN (05:49)
[2018-06-02] MEDS: PIPERACILLIN/TAZ 2.25G PREMIX 50 ML IV SCH ×3 (05:50→22:10)
[2018-06-02 06:19] LABS: PLATELET 29 x1000/uL (130-400)
[2018-06-02] MEDS: DEXT 5%/0.9% NACL 1,000 ML IV SCH (07:00)
[2018-06-02] MEDS ORDERED: ALBUMIN HUMAN 25GM/100ML (25%) IV ONE (07:30)
[2018-06-02 07:51] LABS: BG BASE EXCESS 1.3 mmol/L (-2.0-2.0); BG CARBOXYHEMOGLOBIN 0.9 % (0.5-1.5); BG DEOXYHEMOGLOBIN 1.1 % (0.0-5.0); BG HCO3 ACT 26.3 mmol/L (22.0-26.0); BG METHEMOGLOBIN 0.3 % (0.0-1.5); BG OXYGEN SATURATION 98.9 % (92.0-98.5); BG OXYHEMOGLOBIN 97.7 % (94.0-97.0); BG PCO2 43.5 mmHg (35.0-45.0); BG PO2 153.2 mmHg (75.0-100.0); BG SAMPLE SITE RIGHT BRACHIAL; BG TIDAL VOLUME(mL) 500 mL; BG VENT MODE VENT - A/C; BG VENT RATE 14 set
[2018-06-02] MEDS: PANTOPRAZOLE SODIUM 40 MG/VIAL IV SCH ×2 (08:25→22:08)
[2018-06-02] MEDS: LACTULOSE 20G/30ML UDC PO SCH ×2 (08:25→17:51)
[2018-06-02] MEDS: RIFAXIMIN 550 MG TABLET PO SCH ×2 (08:26→21:32)
[2018-06-02] MEDS: THIAMINE HCL 100MG TABLET PO SCH (08:26)
[2018-06-02] MEDS: FOLIC ACID 1MG TABLET PO SCH (08:26)
[2018-06-02] MEDS: MULTIVITAMINS,THER W-MINERALS TABLET PO SCH (08:26)
[2018-06-02 10:07] LABS: NUCLEATED RED BLOOD CELLS 10 /100 WBC; PLATELET ESTIMATE MARKEDLY DECREASED
[2018-06-02] MEDS ORDERED: VANCOMYCIN 500 MG PREMIX 100 ML IV SCH (12:00)
[2018-06-02] MEDS: PHENYLEPHRINE 80 MG in DEXT 5% WATER 492 ML IV PRN (12:29)
[2018-06-02] MEDS ORDERED: PANTOPRAZOLE SODIUM 40 MG/VIAL IV NR (21:30)
[2018-06-03] VITALS (102 sets, daily range): BP systolic 71–157; BP diastolic 44–92
[2018-06-03] MEDS: BLOOD SUGAR DIAGNOSTIC STRIP TEST SCH ×4 (00:07→18:00)
[2018-06-03] MEDS: METRONIDAZOLE 500 MG PREMIX 100 ML IV SCH ×3 (01:15→18:27)
[2018-06-03] MEDS: PHENYLEPHRINE 80 MG in DEXT 5% WATER 492 ML IV PRN ×2 (02:05→11:47)
[2018-06-03] MEDS: IPRATROPIUM BROMIDE (0.02%) 0.5MG/2.5ML NEB HHN SCH ×4 (02:09→20:50)
[2018-06-03 06:25] LABS: INR 1.5; PARTIAL THROMBOPLASTIN TIME 40.4 sec (23.4-31.0); PROTHROMBIN TIME 14.9 sec (9.1-11.1)
[2018-06-03 06:27] LABS: PHOSPHORUS 4.4 mg/dL (2.5-4.9)
[2018-06-03 06:32] LABS: HEMATOCRIT. 23.5 % (42.0-52.0); HEMOGLOBIN. 7.9 g/dL (14.0-18.0); MEAN CORPUSCULAR HEMOGLOBIN 32.8 pg (28.0-32.0); MEAN CORPUSCULAR VOLUME 97.6 fL (80.0-94.0); MEAN PLATELET VOLUME 11.3 fl (7.4-10.4); RED CELL DISTRIBUTION WIDTH 17.5 % (11.6-14.6)
[2018-06-03] MEDS: PIPERACILLIN/TAZ 2.25G PREMIX 50 ML IV SCH ×3 (06:51→21:28)
[2018-06-03] MEDS: DILTIAZEM HCL 30MG TABLET PO SCH ×4 (06:51→18:27)
[2018-06-03 08:04] LABS: BG BASE EXCESS 4.5 mmol/L (-2.0-2.0); BG CARBOXYHEMOGLOBIN 0.3 % (0.5-1.5); BG DEOXYHEMOGLOBIN 2.1 % (0.0-5.0); BG FRACTION INSPIRED OXYGEN 40; BG HCO3 ACT 29.1 mmol/L (22.0-26.0); BG METHEMOGLOBIN 0.3 % (0.0-1.5); BG OXYGEN SATURATION 97.9 % (92.0-98.5); BG OXYHEMOGLOBIN 97.3 % (94.0-97.0); BG PCO2 43.6 mmHg (35.0-45.0); BG PH 7.442 (7.350-7.450); BG PO2 105.5 mmHg (75.0-100.0); BG SAMPLE SITE LEFT RADIAL; BG TIDAL VOLUME(mL) 500 mL; BG TOTAL HEMOGLOBIN 8.2 g/dL (12.0-18.0); BG VENT MODE VENT - A/C; BG VENT RATE 14 set
[2018-06-03] MEDS: LACTULOSE 20G/30ML UDC PO SCH ×2 (09:53→18:26)
[2018-06-03] MEDS: SUCRALFATE 1 G/10 ML UDC PO SCH ×3 (09:54→21:28)
[2018-06-03] MEDS: PANTOPRAZOLE SODIUM 40 MG/VIAL IV SCH ×2 (09:56→21:28)
[2018-06-03] MEDS: MULTIVITAMINS,THER W-MINERALS TABLET PO SCH (09:56)
[2018-06-03] MEDS: THIAMINE HCL 100MG TABLET PO SCH (09:56)
[2018-06-03] MEDS: FOLIC ACID 1MG TABLET PO SCH (09:56)
[2018-06-03] MEDS: RIFAXIMIN 550 MG TABLET PO SCH ×2 (09:56→21:28)
[2018-06-03] MEDS ORDERED: LORAZEPAM 2MG/ML CPJ IV PRN (10:15)
[2018-06-03 12:58] LABS: NUCLEATED RED BLOOD CELLS 18 /100 WBC
[2018-06-03 12:59] LABS: PLATELET ESTIMATE MARKEDLY DECREASED
[2018-06-03 13:01] LABS: PLATELET 30 x1000/uL (130-400)
[2018-06-03] MEDS: DEXT 5%/0.9% NACL 1,000 ML IV SCH (13:18)
[2018-06-04] VITALS (130 sets, daily range): BP systolic 66–141; BP diastolic 17–111
[2018-06-04] MEDS: IPRATROPIUM BROMIDE (0.02%) 0.5MG/2.5ML NEB HHN SCH ×4 (00:57→20:14)
[2018-06-04] MEDS: METRONIDAZOLE 500 MG PREMIX 100 ML IV SCH ×2 (01:44→08:58)
[2018-06-04] MEDS: DEXT 5%/0.9% NACL 1,000 ML IV SCH ×2 (02:50→12:17)
[2018-06-04] MEDS: SUCRALFATE 1 G/10 ML UDC PO SCH ×4 (03:56→20:30)
[2018-06-04] MEDS: DILTIAZEM HCL 30MG TABLET PO SCH ×5 (06:00→23:52)
[2018-06-04] MEDS: PIPERACILLIN/TAZ 2.25G PREMIX 50 ML IV SCH ×3 (06:01→21:16)
[2018-06-04] MEDS: BLOOD SUGAR DIAGNOSTIC STRIP TEST SCH ×5 (06:05→23:51)
[2018-06-04 06:08] LABS: HEMATOCRIT. 27.6 % (42.0-52.0); HEMOGLOBIN. 9.5 g/dL (14.0-18.0); MEAN CORPUSCULAR HEMOGLOBIN 32.4 pg (28.0-32.0); MEAN CORPUSCULAR VOLUME 94.2 fL (80.0-94.0); MEAN PLATELET VOLUME 11.4 fl (7.4-10.4); RED BLOOD CELL COUNT 2.93 mill/uL (4.7-6.1); RED CELL DISTRIBUTION WIDTH 15.9 % (11.6-14.6)
[2018-06-04 06:24] LABS: PHOSPHORUS 4.5 mg/dL (2.5-4.9)
[2018-06-04 06:42] LABS: PLATELET 28 x1000/uL (130-400)
[2018-06-04 08:14] LABS: NUCLEATED RED BLOOD CELLS 18 /100 WBC
[2018-06-04 08:15] LABS: PLATELET ESTIMATE MARKEDLY DECREASED
[2018-06-04] MEDS: PHENYLEPHRINE 80 MG in DEXT 5% WATER 492 ML IV PRN ×2 (08:25→23:53)
[2018-06-04 08:28] LABS: BG BASE EXCESS -0.8 mmol/L (-2.0-2.0); BG CARBOXYHEMOGLOBIN 0.3 % (0.5-1.5); BG DEOXYHEMOGLOBIN 3.5 % (0.0-5.0); BG FRACTION INSPIRED OXYGEN 40; BG HCO3 ACT 22.7 mmol/L (22.0-26.0); BG METHEMOGLOBIN 0.1 % (0.0-1.5); BG OXYGEN SATURATION 96.5 % (92.0-98.5); BG OXYHEMOGLOBIN 96.1 % (94.0-97.0); BG PCO2 33.2 mmHg (35.0-45.0); BG PH 7.453 (7.350-7.450); BG PO2 87.1 mmHg (75.0-100.0); BG SAMPLE SITE LEFT BRACHIAL; BG TIDAL VOLUME(mL) 500 mL; BG TOTAL HEMOGLOBIN 9.8 g/dL (12.0-18.0); BG VENT MODE VENT - A/C; BG VENT RATE 14 set
[2018-06-04] MEDS: MULTIVITAMINS,THER W-MINERALS TABLET PO SCH (08:58)
[2018-06-04] MEDS: LACTULOSE 20G/30ML UDC PO SCH ×2 (08:58→17:00)
[2018-06-04] MEDS: RIFAXIMIN 550 MG TABLET PO SCH ×2 (08:58→20:30)
[2018-06-04] MEDS: PANTOPRAZOLE SODIUM 40 MG/VIAL IV SCH ×2 (08:58→20:30)
[2018-06-04] MEDS: FOLIC ACID 1MG TABLET PO SCH (08:59)
[2018-06-04] MEDS: THIAMINE HCL 100MG TABLET PO SCH (08:59)
[2018-06-04] MEDS ORDERED: VANCOMYCIN 1 G PREMIX 200 ML IV SCH (16:00)
[2018-06-04] MEDS ORDERED: MAGNESIUM 1 G PREMIX 200 ML IV ONE (16:04)
[2018-06-04] MEDS ORDERED: AMIODARONE HCL 150 MG in DEXT 5% WATER 100 ML IV NR (16:15)
[2018-06-04] MEDS ORDERED: MAGNESIUM 1 G PREMIX 100 ML IV NR ×2 (16:15)
[2018-06-04] MEDS ORDERED: AMIODARONE HCL 150 MG in DEXT 5% WATER 100 ML IV ONE (17:15)
[2018-06-04] MEDS: AMIODARONE HCL 900 MG in DEXT 5% WATER 482 ML IV PRN (18:58)
[2018-06-04] MEDS: DEXTROSE 50% WATER 50ML SYRINGE IV PRN (23:51)
[2018-06-05] VITALS (94 sets, daily range): BP systolic 49–123; BP diastolic 12–103
[2018-06-05 00:16] LABS: MEAN CORPUSCULAR HEMOGLOBIN 31.9 pg (28.0-32.0); MEAN CORPUSCULAR VOLUME 96.5 fL (80.0-94.0); MEAN PLATELET VOLUME 10.5 fl (7.4-10.4); PLATELET 70 x1000/uL (130-400); RED BLOOD CELL COUNT 2.12 mill/uL (4.7-6.1); RED CELL DISTRIBUTION WIDTH 16.7 % (11.6-14.6)
[2018-06-05 00:36] LABS: HEMATOCRIT. 20.5 % (42.0-52.0); HEMOGLOBIN. 6.8 g/dL (14.0-18.0)
[2018-06-05 01:20] LABS: D-DIMER 22.43 mg/L FEU (<0.50); INR 1.8; PROTHROMBIN TIME 17.6 sec (9.1-11.1)
[2018-06-05] MEDS: IPRATROPIUM BROMIDE (0.02%) 0.5MG/2.5ML NEB HHN SCH ×4 (01:33→20:09)
[2018-06-05] MEDS: SUCRALFATE 1 G/10 ML UDC PO SCH ×4 (02:20→21:10)
[2018-06-05] MEDS: BLOOD SUGAR DIAGNOSTIC STRIP TEST SCH ×3 (05:05→17:30)
[2018-06-05] MEDS: DILTIAZEM HCL 30MG TABLET PO SCH ×3 (05:13→17:07)
[2018-06-05] MEDS: PIPERACILLIN/TAZ 2.25G PREMIX 50 ML IV SCH ×3 (05:13→21:10)
[2018-06-05 07:13] LABS: FOLIC ACID (FOLATE) SERUM 9.1 ng/mL (>5.38)
[2018-06-05 07:19] LABS: BG BASE EXCESS -10.7 mmol/L (-2.0-2.0); BG HCO3 ACT 14.9 mmol/L (22.0-26.0); BG METHEMOGLOBIN 0.3 % (0.0-1.5); BG OXYGEN SATURATION 90.9 % (92.0-98.5); BG OXYHEMOGLOBIN 89.7 % (94.0-97.0); BG PH 7.287 (7.350-7.450); BG PO2 65.2 mmHg (75.0-100.0); BG SAMPLE SITE RIGHT RADIAL; BG TIDAL VOLUME(mL) 500 mL; BG VENT MODE VENT - A/C; BG VENT RATE 14 set
[2018-06-05 08:46] LABS: NUCLEATED RED BLOOD CELLS 19 /100 WBC
[2018-06-05 08:47] LABS: PLATELET ESTIMATE DECREASED
[2018-06-05] MEDS: LACTULOSE 20G/30ML UDC PO SCH (08:50)
[2018-06-05] MEDS: PANTOPRAZOLE SODIUM 40 MG/VIAL IV SCH ×2 (08:50→21:09)
[2018-06-05] MEDS: MULTIVITAMINS,THER W-MINERALS TABLET PO SCH (08:51)
[2018-06-05] MEDS: FOLIC ACID 1MG TABLET PO SCH (08:51)
[2018-06-05] MEDS: THIAMINE HCL 100MG TABLET PO SCH (08:51)
[2018-06-05] MEDS: RIFAXIMIN 550 MG TABLET PO SCH (08:51)
[2018-06-05] MEDS: DEXT 5%/0.9% NACL 1,000 ML IV SCH (08:51)
[2018-06-05] MEDS: PHENYLEPHRINE 80 MG in DEXT 5% WATER 492 ML IV PRN ×2 (10:52→20:55)
[2018-06-05] MEDS: DEXTROSE 50% WATER 50ML SYRINGE IV PRN ×2 (12:10→17:54)
[2018-06-05] MEDS: AMIODARONE HCL 900 MG in DEXT 5% WATER 482 ML IV PRN (13:57)
[2018-06-05 14:23] LABS: HEMATOCRIT. 30.1 % (42.0-52.0); HEMOGLOBIN. 9.9 g/dL (14.0-18.0); MEAN CORPUSCULAR HEMOGLOBIN 32.7 pg (28.0-32.0); RED BLOOD CELL COUNT 3.04 mill/uL (4.7-6.1); RED CELL DISTRIBUTION WIDTH 16.6 % (11.6-14.6)
[2018-06-05 14:34] LABS: PLATELET 44 x1000/uL (130-400)
[2018-06-05 14:35] LABS: PHOSPHORUS 7.8 mg/dL (2.5-4.9)
[2018-06-05 15:26] LABS: NUCLEATED RED BLOOD CELLS 22 /100 WBC
[2018-06-05 15:35] LABS: PLATELET ESTIMATE MARKEDLY DECREASED
[2018-06-05] MEDS ORDERED: CALCIUM CHLORIDE 1GM/10ML SYR IV ONE (15:40)
[2018-06-05] MEDS ORDERED: SODIUM BICARBONATE 7.5% 0.9 MEQ/ML 50ML SYR IV ONE (15:40)
[2018-06-05] MEDS ORDERED: EPINEPHRINE 0.1MG/ML (1:10,000) 10ML SYR ONE (15:40)
[2018-06-05] MEDS ORDERED: SODIUM BICARBONATE 150 MEQ in DEXTROSE 5% WATER 1,000 ML IV SCH (16:30)
[2018-06-05] MEDS ORDERED: METRONIDAZOLE 500 MG PREMIX 100 ML IV SCH ×2 (18:00→20:00)
[2018-06-05] MEDS ORDERED: DOPAMINE 400MG PREMIX 250 ML IV PRN (19:15)
[2018-06-05] MEDS ORDERED: DOPAMINE 800MG PREMIX 250 ML IV PRN ×2 (19:15→21:00)
[2018-06-05] MEDS: NOREPINEPHRINE 8 MG in DEXT 5% WATER 242 ML IV PRN (19:25)
[2018-06-05] MEDS ORDERED: NOREPINEPHRINE 16 MG in DEXT 5% WATER 234 ML IV PRN (21:00)
[2018-06-06] MEDS ORDERED: EPINEPHRINE 0.1MG/ML (1:10,000) 10ML SYR ONE ×2 (15:03→15:55)
[2018-06-06] MEDS ORDERED: SODIUM BICARBONATE 7.5% 0.9 MEQ/ML 50ML SYR IV ONE ×2 (15:03→15:55)
[2018-06-06] MEDS ORDERED: CALCIUM CHLORIDE 1GM/10ML SYR IV ONE (15:03)
== END 2018-06-06 02:11 | disposition expired | DRG 853 ==
LOC: ER 10:06 → 5EST 11:48 → EDBEDREQ 11:52 → EDBEDREQTM 11:52 → ENRESERV 14:47 → 5EST 05-20 06:28 → CVICU 05-29 02:08
PROVIDERS: ADMIT Internal Medicine; ATTEND Internal Medicine
PROC: 0W9930Z Drainage of Right Pleural Cavity with Drainage Device, Percutaneous Approach (ICD-10-PCS; 2018-05-19)
PROC: 0D9670Z Drainage of Stomach with Drainage Device, Via Natural or Artificial Opening (ICD-10-PCS; 2018-05-19)
PROC: 5A1935Z Respiratory Ventilation, Less than 24 Consecutive Hours (ICD-10-PCS; 2018-05-20)
PROC: 30233L1 Transfusion of Nonautologous Fresh Plasma into Peripheral Vein, Percutaneous Approach (ICD-10-PCS; 2018-05-21)
PROC: 30233K1 Transfusion of Nonautologous Frozen Plasma into Peripheral Vein, Percutaneous Approach (ICD-10-PCS; 2018-05-21)
PROC: 5A1D70Z Performance of Urinary Filtration, Intermittent, Less than 6 Hours Per Day (ICD-10-PCS; 2018-05-21)
PROC: 02HV33Z Insertion of Infusion Device into Superior Vena Cava, Percutaneous Approach (ICD-10-PCS; 2018-05-21)
PROC: B548ZZA Ultrasonography of Superior Vena Cava, Guidance (ICD-10-PCS; 2018-05-21)
PROC: 0JBM0ZZ Excision of Left Upper Leg Subcutaneous Tissue and Fascia, Open Approach (ICD-10-PCS; principal; 2018-05-22)
PROC: 30233R1 Transfusion of Nonautologous Platelets into Peripheral Vein, Percutaneous Approach (ICD-10-PCS; 2018-05-22)
PROC: 5A1D70Z Performance of Urinary Filtration, Intermittent, Less than 6 Hours Per Day (ICD-10-PCS; 2018-05-24)
PROC: 5A1D70Z Performance of Urinary Filtration, Intermittent, Less than 6 Hours Per Day (ICD-10-PCS; 2018-05-25)
PROC: 5A1D70Z Performance of Urinary Filtration, Intermittent, Less than 6 Hours Per Day (ICD-10-PCS; 2018-05-27)
PROC: 30233N1 Transfusion of Nonautologous Red Blood Cells into Peripheral Vein, Percutaneous Approach (ICD-10-PCS; 2018-05-29)
PROC: 0BH17EZ Insertion of Endotracheal Airway into Trachea, Via Natural or Artificial Opening (ICD-10-PCS; 2018-05-30)
PROC: 5A1D70Z Performance of Urinary Filtration, Intermittent, Less than 6 Hours Per Day (ICD-10-PCS; 2018-05-30)
PROC: 5A12012 Performance of Cardiac Output, Single, Manual (ICD-10-PCS; 2018-05-30)
PROC: 0DB68ZX Excision of Stomach, Via Natural or Artificial Opening Endoscopic, Diagnostic (ICD-10-PCS; 2018-05-30)
PROC: 5A1D70Z Performance of Urinary Filtration, Intermittent, Less than 6 Hours Per Day (ICD-10-PCS; 2018-05-31)
PROC: 5A1D70Z Performance of Urinary Filtration, Intermittent, Less than 6 Hours Per Day (ICD-10-PCS; 2018-06-01)
PROC: 5A1D70Z Performance of Urinary Filtration, Intermittent, Less than 6 Hours Per Day (ICD-10-PCS; 2018-06-02)
PROC: 5A1D70Z Performance of Urinary Filtration, Intermittent, Less than 6 Hours Per Day (ICD-10-PCS; 2018-06-03)
PROC: 02HV33Z Insertion of Infusion Device into Superior Vena Cava, Percutaneous Approach (ICD-10-PCS; 2018-06-03)
PROC: B548ZZA Ultrasonography of Superior Vena Cava, Guidance (ICD-10-PCS; 2018-06-03)
PROC: 5A12012 Performance of Cardiac Output, Single, Manual (ICD-10-PCS; 2018-06-06)
DX: A41.9 Sepsis, unspecified organism (principal); K76.7 Hepatorenal syndrome; J96.01 Acute respiratory failure with hypoxia; I50.43 Acute on chronic combined systolic (congestive) and diastolic (congestive) heart failure; R65.21 Severe sepsis with septic shock; G92 Toxic encephalopathy; K25.4 Chronic or unspecified gastric ulcer with hemorrhage; S22.31XA Fracture of one rib, right side, initial encounter for closed fracture; I48.92 Unspecified atrial flutter; E87.1 Hypo-osmolality and hyponatremia; N39.0 Urinary tract infection, site not specified; D68.9 Coagulation defect, unspecified; E87.2 Acidosis; N17.9 Acute kidney failure, unspecified; N18.4 Chronic kidney disease, stage 4 (severe); E11.52 Type 2 diabetes mellitus with diabetic peripheral angiopathy with gangrene; I13.0 Hypertensive heart and chronic kidney disease with heart failure and stage 1 through stage 4 chronic kidney disease, or unspecified chronic kidney disease; I42.9 Cardiomyopathy, unspecified; I47.1 Supraventricular tachycardia; J98.11 Atelectasis; K31.1 Adult hypertrophic pyloric stenosis; L03.115 Cellulitis of right lower limb; L03.116 Cellulitis of left lower limb; M62.82 Rhabdomyolysis; R64 Cachexia; I96 Gangrene, not elsewhere classified; K56.609 Unspecified intestinal obstruction, unspecified as to partial versus complete obstruction; M86.8X6 Other osteomyelitis, lower leg; S27.0XXA Traumatic pneumothorax, initial encounter; T79.7XXA Traumatic subcutaneous emphysema, initial encounter; E87.0 Hyperosmolality and hypernatremia; I95.9 Hypotension, unspecified; E87.8 Other disorders of electrolyte and fluid balance, not elsewhere classified; D69.6 Thrombocytopenia, unspecified; K80.20 Calculus of gallbladder without cholecystitis without obstruction; K76.0 Fatty (change of) liver, not elsewhere classified; K72.90 Hepatic failure, unspecified without coma; D64.9 Anemia, unspecified; D75.89 Other specified diseases of blood and blood-forming organs; E03.9 Hypothyroidism, unspecified; E11.22 Type 2 diabetes mellitus with diabetic chronic kidney disease; E11.69 Type 2 diabetes mellitus with other specified complication; E78.1 Pure hyperglyceridemia; E78.5 Hyperlipidemia, unspecified; E87.5 Hyperkalemia; F17.210 Nicotine dependence, cigarettes, uncomplicated; I08.1 Rheumatic disorders of both mitral and tricuspid valves; I25.10 Atherosclerotic heart disease of native coronary artery without angina pectoris; I27.81 Cor pulmonale (chronic); I99.8 Other disorder of circulatory system; J44.9 Chronic obstructive pulmonary disease, unspecified; K59.00 Constipation, unspecified; K82.8 Other specified diseases of gallbladder; L60.3 Nail dystrophy; N20.0 Calculus of kidney; N43.3 Hydrocele, unspecified; T68.XXXA Hypothermia, initial encounter; T14.8XXA Other injury of unspecified body region, initial encounter; E11.621 Type 2 diabetes mellitus with foot ulcer; W18.39XA Other fall on same level, initial encounter; R26.9 Unspecified abnormalities of gait and mobility; E21.1 Secondary hyperparathyroidism, not elsewhere classified; S20.221A Contusion of right back wall of thorax, initial encounter; S71.102A Unspecified open wound, left thigh, initial encounter; K40.90 Unilateral inguinal hernia, without obstruction or gangrene, not specified as recurrent; I48.0 Paroxysmal atrial fibrillation; N50.89 Other specified disorders of the male genital organs; Z79.4 Long term (current) use of insulin; Z59.0 Homelessness; Z78.1 Physical restraint status; Z86.74 Personal history of sudden cardiac arrest; Z68.23 Body mass index [BMI] 23.0-23.9, adult; Y93.89 Activity, other specified; Y92.89 Other specified places as the place of occurrence of the external cause; Y99.8 Other external cause status; Z99.2 Dependence on renal dialysis
CPT/HCPCS: 36415; 36569; 36600; 71045; 71250; 73630; 74018; 74176; 76700; 76705; 76937; 78580; 80048; 80061; 80076; 80162; 80202; 80305; 82140; 82248; 82375; 82533; 82542; 82550; 82607; 82746; 82805; 82962; 83036; 83605; 83735; 83880; 84100; 84134; 84145; 84439; 84443; 84478; 84481; 84484; 84550; 85007; 85014; 85018; 85027; 85379; 85384; 86022; 86705; 86709; 86803; 86850; 86900; 86920; 86927; 86945; 87070; 87340; 87389; 88305; 88312; 88313; 93005; 93306; 93880; 93923; 93970; 94002; 94003; 94640; 97162; 97166; 97535; 99291; A4216; A6261; C1725; C1752; C1769; C9113; J0282; J0692; J1160; J1265; J1815; J1940; J1956; J2270; J2354; J2370; J2405; J2543; J2704; J3370; J3430; J3475; J3490; J7030; J7040; J7042; J7050; J7060; J7070; J7620; P9016; P9017; P9034; P9047; A4315